=== PATIENT | female | born 1985 | race Caucasian/White ===

== ENCOUNTER 2017-04-23 19:37 | Inpatient (IN) | payer MEDICAID ==
[~2017-04-23] VITALS: Ht 149.9 cm; Wt 78.1 kg
[2017-04-23 20:12] LABS: BASOPHIL % 0.3 % (0.0-0.2); EOSINOPHIL # 0.3 10^3/uL (0.0-0.2); HEMOGLOBIN 11.2 g/dL (12.0-15.0); LYMPHOCYTES # 2.7 10^3/uL (1.0-4.8); LYMPHOCYTES % 30.7 % (24.0-44.0); MEAN CELL HGB 24.1 pg (26-34); MEAN CORP VOLUME 80.2 fL (78-100); MEAN PLATELET VOLUME 9.6 fL (7.8-11.0); MONOCYTES # 0.5 10^3/uL (0.3-0.8); MONOCYTES % 5.8 % (5.0-12.0); NEUTROPHIL # 5.4 10^3/uL (1.8-7.7); NEUTROPHILS % 60.1 % (41.0-85.0); RED CELL DISTRIBUTION WIDTH 14.7 % (11.5-14.5); WHITE BLOOD CELL 8.9 10^3/uL (4.5-11.0)
[2017-04-23 20:27] LABS: CALCIUM 8.3 mg/dL (8.4-10.5)
[2017-04-23] MEDS ORDERED: DILAUDID IV PRN (20:30)
[2017-04-23] MEDS: ZOFRAN IV PRN (20:41)
[2017-04-23] MEDS: LACTATED RINGERS 1,000 ML IV SCH (20:41)
[2017-04-23] MEDS ORDERED: RESTORIL PO PRN (22:00)
--- NOTE | 2017-04-23 22:22 | HPH ---
ADMIT DATE: 04/23/2017 CHIEF COMPLAINT: Abdominal pain. HISTORY OF PRESENT ILLNESS: The patient is a 31-year-old woman with no significant past medical history who presented for direct admission with right upper quadrant abdominal pain. She has had a with a normal delivery about 3 weeks ago. About a week ago, she started to have significant right upper quadrant pain and nausea. She had outpatient workup in the hospital in [place]. They did a ultrasound that did show cholelithiasis, but at that time no signs of infection. She continued to have worsening symptoms. She had oral pain medications, but still did have refractory pain, especially after eating a meal. She denies any fever or chills. No other acute changes in her health. PAST MEDICAL HISTORY: Essentially none. PAST SURGICAL HISTORY: She had 3 weeks ago. ALLERGIES: NO KNOWN DRUG ALLERGIES. HOME MEDICATIONS LIST: She does not take any routine home medications. SOCIAL HISTORY: She lives at home. No tobacco or illicit drug use. Rare alcohol use. FAMILY HISTORY: Negative for early coronary artery disease or diabetes. REVIEW OF SYSTEMS: CARDIAC: Denies chest pain, shortness of breath or dyspnea on exertion. PULMONARY: No cough, sputum production or pleuritic chest pain. GASTROINTESTINAL: Positive for nausea, no vomiting, diarrhea or constipation. All else negative in 10 point review of system except as in HPI. PHYSICAL EXAMINATION: VITAL SIGNS: Upon arrival, height is 150 cm, weight 75 kilograms, temperature at time of admission 98.3, pulse of 84, respiratory rate is 18. GENERAL: She is alert, in no acute distress at time of exam. HEENT: Pupils equal, round and reactive to light. Sclerae are anicteric. Oropharynx is clear. Mucous membranes are moist. NECK: Supple, no lymphadenopathy. CARDIOVASCULAR: At time of exam was regular rate and rhythm. LUNGS: Clear bilaterally. ABDOMEN: Soft. Tender to palpation in right upper quadrant. No rebound or guarding. Bowel sounds present. EXTREMITIES: No cyanosis, clubbing or significant edema. NEUROLOGIC: Grossly nonfocal. LABORATORY DATA: CBC: White count 8.9, hemoglobin 11.2 and platelets 273. Differential: 60% neutrophils, 31% lymphocytes, 6% monocytes. Sodium 142, potassium 3.6, chloride 105, CO2 is 28, BUN 13, creatinine 1.1, glucose 86, calcium is 8.3, total bilirubin 0.2, AST 13, ALT 33, alkaline phosphatase 162, total protein 7.1, albumin 3.0. PT is 9.9 and PTT 24.1. IMAGING STUDIES: She had an outpatient ultrasound that showed cholelithiasis with multiple gallstones. ASSESSMENT AND PLAN: The patient is a 31-year-old woman here with symptomatic cholelithiasis with uncontrolled pain as outpatient, failed outpatient pain control therapy. 1. General Surgery will be consulted. 2. IV fluid hydration. 3. Appropriate p.r.n. pain and nausea medications. 4. DVT prophylaxis will be with SCDs. Time spent on history and physical on 04/23/2017 is 45 minutes. This plan was discussed with the patient. She is her own decision maker. She does understand and concur with plans. Blaise Bland MD DR: ATIF/shane JOB# [id number]
[2017-04-23] MEDS: LOVENOX SQ SCH (23:44)
[2017-04-23 23:48] VITALS: BP 98/65
[2017-04-24] VITALS (10 sets, daily range): BP systolic 113–152; BP diastolic 77–94
[2017-04-24] MEDS: LACTATED RINGERS 1,000 ML IV SCH ×3 (05:41→16:26)
--- NOTE | 2017-04-24 10:38 | NUR ---
OFF UNIT PT OFF UNIT AT THIS TIME TO OR. REPORT GIVEN TO BREANA VANEGAS
[2017-04-24] MEDS ORDERED: SODIUM CHLORIDE IR ONE (10:57)
[2017-04-24] MEDS ORDERED: SODIUM CHLORIDE IRR BAG 1,000 ML ONE (10:57)
[2017-04-24] MEDS ORDERED: SENSORCAINE-MPF 0.5% VIAL ONE (10:57)
[2017-04-24] MEDS ORDERED: TORADOL ONE (11:02)
[2017-04-24] MEDS ORDERED: ZEMURON IV ONE (11:02)
[2017-04-24] MEDS ORDERED: ZOFRAN ONE (11:02)
[2017-04-24] MEDS ORDERED: DECADRON ONE (11:02)
[2017-04-24] MEDS ORDERED: NEOSTIGMINE ONE (11:02)
[2017-04-24] MEDS ORDERED: LIDOCAINE 2% VIAL ONE (11:02)
[2017-04-24] MEDS ORDERED: SUBLIMAZE ONE (11:03)
[2017-04-24] MEDS ORDERED: VERSED ONE (11:03)
[2017-04-24] MEDS ORDERED: DILAUDID ONE (11:03)
[2017-04-24] MEDS ORDERED: DIPRIVAN IV ONE (11:03)
[2017-04-24] MEDS ORDERED: QUELICIN ONE (11:03)
[2017-04-24] MEDS ORDERED: MEFOXIN IV SCH (11:05)
[2017-04-24] MEDS ORDERED: NS 100ML 100 ML IV ONE (11:18)
[2017-04-24] MEDS ORDERED: MEFOXIN ONE (11:18)
[2017-04-24] MEDS ORDERED: DEMEROL IV PRN (12:30)
[2017-04-24] MEDS ORDERED: SUBLIMAZE IV PRN (12:30)
[2017-04-24] MEDS ORDERED: PHENERGAN IV PRN (12:30)
[2017-04-24] MEDS ORDERED: DILAUDID IV PRN (12:30)
[2017-04-24] MEDS ORDERED: MORPHINE SULFATE IV PRN (12:30)
--- NOTE | 2017-04-24 13:00 | NUR ---
BACK TO FLOOR PT BACK FROM OR AT THIS TIME. REPORT RECEIVED AND ASSUMED CARE OF PT
[2017-04-24] MEDS: ZOFRAN IV PRN (15:15)
--- NOTE | 2017-04-24 15:58 | OPH ---
DATE OF SURGERY: 04/24/2017 PREOPERATIVE DIAGNOSIS: Cholelithiasis with symptoms. POSTOPERATIVE DIAGNOSIS: Cholelithiasis with cholecystitis. SURGEON: Long Patel DO CANTEEN OPERATOR: OR staff. ANESTHESIA: General by Cassia Jay CRNA plus local used on the field. PROCEDURES PERFORMED: Laparoscopic-assisted cholecystectomy. SPECIMENS: Gallbladder to path with multiple stones. ESTIMATED BLOOD LOSS: 11 mL. COUNTS: At the completion of the case, counts correct per OR staff. DESCRIPTION OF PROCEDURE: This patient is a 31-year-old female known from previous consult. Prior to procedure, informed consent was obtained. At the time of procedure, she was taken to the operative suite and placed in supine position. After timeout was completed, general anesthesia was obtained. Her abdomen was prepped and draped in normal fashion. Local was used to anesthetize the infraumbilical region. Incision created and 5 mm trocar was introduced into the abdomen with Endo camera visualization. Once in the abdomen, pneumoperitoneum was induced to the level of 14 mmHg. With camera visualization, 5 mm trocar was placed laterally in the right upper quadrant, one was placed near the midline towards the right upper quadrant and a 12 mm trocar was placed in the epigastrium. The gallbladder was retracted and exposed. There were changes consistent with some acute inflammation. Attention was directed towards the infundibulum. Careful dissection was made to isolate what proves to be a very short cystic duct with the common duct being visualized, the cystic duct was clearly isolated, it was clipped twice proximally and once distally and divided sharply. Further dissection was made to isolate cystic arteries, clipped twice proximally and once distally, divided sharply. The gallbladder was then removed from liver bed using electrocautery. Posteriorly, another branch of the cystic artery identified was divided with electrocautery and a single clip was placed proximally. With good hemostasis noted, the remainder of the gallbladder was removed from the liver bed using electrocautery. Once completely removed, it was placed in EndoCatch bag, removed through the epigastric trocar. In the process of removal, the Endoclip was removed from the cystic duct and there was noted to be a single lumen. Due to the amount of stone volume, a enterotomy was created in the gallbladder and the stones were removed and placed in the bag using Verónica clamp. The remainder of the gallbladder and contents were removed and passed off the field. Trocar was reinserted, the gallbladder fossa was irrigated with sterile saline, inspected for bleeding, any bleeding identified was controlled with electrocautery. With meticulous hemostasis noted, irrigation and suctioning, closure pursued. With camera visualization, all 4 trocar sites were localized. The camera was placed in the superior trocar and 3 inferior trocars were removed with camera visualization. There was noted to be no bleeding. Fascia on the large incision was inspected as well as musculature with removal of the large trocar through the trocar tract using camera visualization. There was no identified bleeding. Fascia on the epigastric incision was closed with 0 Vicryl suture. The 4 skin incisions were closed with 4-0 Monocryl. The patient was cleaned. Steri-Strips were applied. Dressings were applied. Drapes removed. The patient appeared to tolerate these procedures well. There were no acute complications noted. Long Patel DO DR: MIRIAM/shane JOB# [id number] CC: Blaise Bland MD MTDD
--- NOTE | 2017-04-24 17:35 | NUR ---
AMBULATION PT UP AMBULATING IN HALLWAY AT THIS TIME. TOLERATED WELL. NO PAIN VOICED
--- NOTE | 2017-04-24 18:54 | NUR ---
REPORT REPORT GIVEN TO ONCOMING SHIFT AND CARE RELINQUISHED
[2017-04-24] MEDS ORDERED: MORPHINE SULFATE ONE (19:05)
--- NOTE | 2017-04-24 19:10 | CNH ---
DATE OF CONSULTATION: CHIEF COMPLAINT: Cholelithiasis. HISTORY OF PRESENT ILLNESS: This is a 31-year-old female who is in no acute distress at the time of my assessment. She has apparently had intermittent upper abdominal pain symptoms for the last 9 months associated with the . Her pain was varied between sharp and sometimes pressure like. She does report posterior radiation with some symptoms and related nausea and vomiting. On several occasions, her symptoms were increased associated with p.o. intake. She has had an ultrasound at an outside facility, is positive for cholelithiasis. PAST MEDICAL HISTORY: She denies. PAST SURGICAL HISTORY: Positive for . ALLERGIES: NO KNOWN DRUG ALLERGIES. HOME MEDICATIONS: None. SOCIAL HISTORY: Positive for occasional alcohol, negative for tobacco or illicit drug use. FAMILY HISTORY: Mother is living at 65 with some hypertension. Father is living unknown age, this is essentially noncontributory evaluation. REVIEW OF SYSTEMS: CONSTITUTIONAL: No reported fever, chills or weakness. ENDOCRINE: No known thyroid disease or diabetes. CARDIOVASCULAR: No chest pain or trouble breathing. PULMONARY: No dyspnea or cough. ABDOMEN: As per HPI. MUSCULOSKELETAL: No complaints. PHYSICAL EXAMINATION: VITAL SIGNS: Afebrile, female. Last temperature is 98.3, pulse 84, respiratory rate of 20. GENERAL: This is a healthy-appearing, 31-year-old female in no acute distress. Her BMI is 33.7 per chart. She is alert and oriented x 3 and appropriate. HEENT: Normocephalic, atraumatic. [place] mucous membranes. NECK: Supple and soft. Trachea is midline. She has no JVD, no thyromegaly. HEART: Deferred. They are performed by the hospitalist. LUNGS: Deferred. They are performed by the hospitalist. ABDOMEN: The bowel sounds are positive, soft. She has no tenderness on exam today. EXTREMITIES: Show positive radial pulses bilaterally. Positive dorsal pedal pulse bilaterally. NEUROLOGIC: No acute findings. Cranial nerves 2-12 grossly intact. SKIN AND INTEGUMENT: Warm and dry. LABORATORY STUDIES: Show white count 8.9, hemoglobin 11.2 and platelet count 273. Chemistry shows BUN of 13, creatinine 1.10, albumin is 3.0, total bilirubin 0.2. Coagulation studies are essentially normal. test has been ordered. SURGICAL ASSESSMENT: 1. Documented history of cholelithiasis with associated symptoms. 2. Status post with delivery approximately 3-4 weeks ago. PLAN: 1. The patient is seen and examined. Her chart is reviewed. 2. The patient has had persistent symptoms that are consistent and she is only improved while she is on a clear liquid diet at this point. We will plan for laparoscopic cholecystectomy soon. Long Patel DO DR: MIRIAM/shane JOB# [id number] CC: Blaise Bland MD
[2017-04-24] MEDS: LOVENOX SQ SCH (21:48)
[2017-04-25] MEDS: LACTATED RINGERS 1,000 ML IV SCH (00:34)
[2017-04-25 00:48] VITALS: BP 105/53
[2017-04-25 05:57] VITALS: BP 101/64
[2017-04-25] MEDS ORDERED: PROM12.55 PO (06:51)
[2017-04-25] MEDS ORDERED: ACET-685 PO (06:51)
[2017-04-25] MEDS ORDERED: SIME80TA16 PO (06:51)
--- NOTE | 2017-04-25 06:55 | PRM.DC ---
Discharge Summary Date of Discharge: Apr 25, 2017 Reason for Visit: 1. Cholelithiasis, 2. Abdominal pain History Present Illness: (1) Cholelithiasis Status: Resolved ICD Code: K80.20 - Calculus of gallbladder without cholecystitis without obstruction SNOMED: 709436529 General: Alert, Oriented X3, Cooperative, No acute distress HEENT: PERRLA, EOMI Neck: Supple, No JVD Lungs: Clear to auscultation, Normal air movement Heart: Regular rate, Normal S1, Normal S2 Abdomen: Normal bowel sounds, Soft, No tenderness Extremities: No clubbing, No cyanosis, No edema Skin: No breakdown, No significant lesion Neuro: Normal speech, Strength at 5/5 X4 ext, Cranial nerves 3-12 NL Psych/Mental Status: Mental status NL, Mood NL Results(Labs/Rad) Laboratory Tests Test 04/23/17 20:05 White Blood Count 8.9 10^3/uL Red Blood Count 4.65 10^6/uL Hemoglobin 11.2 g/dL Hematocrit 37.3 % Mean Corpuscular Volume 80.2 fL Mean Corpuscular Hemoglobin 24.1 pg Mean Corpuscular Hemoglobin Concent 30.0 g/dL Red Cell Distribution Width 14.7 % Platelet Count 273 10^3/uL Mean Platelet Volume 9.6 fL Neutrophils (%) (Auto) 60.1 % Lymphocytes (%) (Auto) 30.7 % Monocytes (%) (Auto) 5.8 % Neutrophils # (Auto) 5.4 10^3/uL Lymphocytes # (Auto) 2.7 10^3/uL Monocytes # (Auto) 0.5 10^3/uL Absolute Immature Granulocyte (auto 0.01 10^3 u/L Eosinophils % 3.0 % Basophils % 0.3 % Basophils # 0.0 10^3/uL Eosinophil Count 0.3 10^3/uL Prothrombin Time 9.9 SEC Prothrombin Time INR (Non-Therap) 1.0 Activated Partial Thromboplast Time 24.1 SEC Sodium Level 142 mmol/L Potassium Level 3.6 mmol/L Chloride Level 105.0 mmol/L Carbon Dioxide Level 28.0 mmol/L Anion Gap 12.6 Blood Urea Nitrogen 13 mg/dL Creatinine 1.10 mg/dL Estimated GFR () 71.1 BUN/Creatinine Ratio 11.0 Glucose Level 86 mg/dL Calcium Level 8.3 mg/dL Total Bilirubin 0.2 mg/dL Aspartate Amino Transf (AST/SGOT) 13 U/L Alanine Aminotransferase (ALT/SGPT) 33 U/L Alkaline Phosphatase 162 U/L Total Protein 7.1 g/dL Albumin 3.0 g/dL Globulin 4.1 Serum HCG, Qualitative NEGATIVE Percent Immature Gran (Cell Imm) 0.10 % Scheduled Acetaminophen With Codeine (Tylenol With Codeine #3 Tablet), 1 EACH PO Q4HR Promethazine Hcl (Promethazine Hcl), 12.5 MG PO Q4HR Simethicone (Simethicone), 80 MG PO Q4HR Sepsis Evaluation @ Discharge Course Blood Pressure Systolic: 101 Blood Pressure Diastolic: 64 Blood Pressure Mean: 76 Notes Ms Diaz presented with uncontrolled abdominal pain and nausea which was worse with oral intake. She did have an outpatient ultrasound which revealed she had gallstones. General Surgery was consulted and she had a laparoscopic cholecystectomy without complications. On day of discharge pain was well controlled and she was tolerating diet well. Plan Discharge Date: Apr 25, 2017 Dicharge DX: 1. Cholelithiasis, 2. Abdominal pain Discharge Disposition: Stable Plan Medications per discharge list Diet as tolerated No heavy lifting next few weeks Activity as tolerated Follow up with PCP 1-2 weeks Discharge plans discussed with patient, she is her own decision maker and does understand and concur with plans Time spent 25 minutes Problem Qualifiers (1) Cholelithiasis: Cholelithiasis location: gallbladder Cholecystitis presence: without cholecystitis Biliary obstruction: without biliary obstruction Qualified Codes: K80.20 - Calculus of gallbladder without cholecystitis without obstruction DARLENE TATUM MD Apr 25, 2017 06:55
--- NOTE | 2017-04-25 07:00 | NUR ---
SITTING UP IN BED. DENIES COMPLAINTS. DR TATUM PRESENT DISCUSSING POC WITH PT. QUESTIONS WERE ANSWERED.
--- NOTE | 2017-04-25 07:30 | NUR ---
COFFEE AND BREAKFAST TRAY SERVED. PT SITTING UP IN CHAIR @ BEDSIDE.
[2017-04-25 07:37] VITALS: BP 115/74
--- NOTE | 2017-04-25 08:13 | NUR ---
ATE 25% OF BREAKFAST. SITTING UP @ BEDSIDE. DENIES COMPLAINTS
--- NOTE | 2017-04-25 08:27 | NUR ---
UP IN BR. DENIES COMPLAINTS.
--- NOTE | 2017-04-25 09:07 | NUR ---
DR TATUM PRESENT @ BEDSIDE. IV DCD PER DR TATUM. PT UP TO SHOWER
[2017-04-25] MEDS ORDERED: TORADOL IM STA (09:29)
--- NOTE | 2017-04-25 10:02 | NUR ---
DC INSTRUCTIONS GIVEN. PT VOICED UNDERSTANDING AND SIGNED WRITTEN OF SAME.
--- NOTE | 2017-04-25 10:04 | NUR ---
TORADOL 30MG IM PER DR LEARY. DR TATUM PRESENT
[2017-04-25 10:20] VITALS: BP 115/74
--- NOTE | 2017-04-25 10:20 | NUR ---
DCD HOME IN STABLE CONDITION VIA AMB TO PRIVATE VEHICLE ACCOMPANIED BY MOTHER AND RN.
--- NOTE | 2017-04-26 07:40 | PNH ---
DATE: 04/24/2017 SUBJECTIVE: She has had laparoscopic cholecystectomy. Pain is well controlled. She is tolerating liquids well. No other acute events overnight. OBJECTIVE: VITAL SIGNS: T-max last 24 hours is 98.4, pulse 60s-70s respiratory rate is 18, blood pressure 124/91 and O2 saturation 97% on room air. GENERAL: She is alert, in no acute distress at time of exam. HEENT: Pupils equal, round, reactive to light. Sclerae are anicteric. Oropharynx is clear. Mucous membranes are moist. NECK: Supple, no lymphadenopathy. CARDIOVASCULAR: At time of exam regular rate and rhythm. LUNGS: Clear bilaterally. No wheezing. ABDOMEN: Soft. Bowel sounds are present, nontender to palpation. EXTREMITIES: No cyanosis, clubbing or significant edema. NEUROLOGIC: Grossly nonfocal. ASSESSMENT AND PLAN: The patient is a 31-year-old woman here status post laparoscopic cholecystectomy after uncontrolled pain with cholelithiasis. 1. IV fluid hydration. Advance diet as tolerated. 2. Appropriate p.r.n. pain and nausea medication. 3. Ambulate as tolerated. Time spent on 04/24/2017 is 25 minutes. Blaise Bland MD DR: TAIF/shane JOB# [id number] MICHAELA
== END 2017-04-25 10:42 | disposition home or self-care (01) | DRG 951 ==
LOC: MS 19:37
PROVIDERS: ADMIT Internal Medicine; ATTEND Internal Medicine
PROC: 0FT44ZZ Resection of Gallbladder, Percutaneous Endoscopic Approach (ICD-10-PCS; principal; 2017-04-24 10:35)
DX: O99.63 Diseases of the digestive system complicating the puerperium (principal); K80.10 Calculus of gallbladder with chronic cholecystitis without obstruction
CPT/HCPCS: 36415; 47562; 80053; 84703; 85025; 85610; 85730; 88304; J0330; J1100; J1170; J1650; J1885; J2001; J2250; J2405; J3010; J3490; J7030; J7050; J7120; J0694; J2270; J2710